=== PATIENT | female | born 1985 | race Caucasian/White ===

== ENCOUNTER 2016-07-16 07:46 | Inpatient (IN) | payer OTHER ==
[2016-07-16] VITALS (18 sets, daily range): BP systolic 98–129; BP diastolic 51–70
[~2016-07-16] VITALS: Ht 160 cm; Wt 88.0 kg
[~2016-07-16 07:46] MED LIST: PRENATAL TABLE1 EAC3 PO; ZANTAC150 MG PO
[2016-07-16] MEDS ORDERED: ZANTAC150 MG PO (08:15)
[2016-07-16 09:35] LABS: EOSINOPHIL (%) 1.3 % (0-5); EOSINOPHIL COUNT 0.2 K/uL (0-0.3); HEMATOCRIT 30.1 % (36.0-46.0); IMMATURE GRANULOCYTE (%) 0.6 % (0.0-0.7); IMMATURE GRANULOCYTE COUNT 0.1 K/uL; LYMPHOCYTE COUNT 1.7 K/uL (1.0-2.8); MCH 25.3 PG (29.0-34.0); MCHC 32.6 G/DL (30.0-36.0); MCV 77.6 FL (83-99); MONOCYTE (%) 7.9 % (3-12); MONOCYTE COUNT 1.1 K/uL (0-0.8); NEUTROPHIL (%) 77.7 % (45-76); NEUTROPHIL COUNT 10.6 K/uL (1.8-6.4); PLATELET COUNT 166 K/uL (156-360); RBC DIS.WIDTH-CV 15.7 % (11.8-14.6); RBC DIS.WIDTH-SD 44.2 % (39-53); RED BLOOD COUNT 3.88 M/uL (3.80-5.20); WHITE BLOOD COUNT 13.7 K/uL (4.1-10.2)
[2016-07-16] MEDS ORDERED: ENDOCET 5-3251 EACH PO (17:16)
[2016-07-16] MEDS ORDERED: IBUPROFEN800 MG PO (17:16)
[2016-07-17 08:00] VITALS: BP 98/58
[2016-07-17 15:33] VITALS: BP 134/64
[2016-07-17 23:10] VITALS: BP 122/67
[2016-07-18 07:30] VITALS: BP 102/52
[2016-07-18] MEDS ORDERED: SLOW RELEASE I160 MG PO (08:36)
== END 2016-07-18 13:41 | disposition home or self-care (01) | DRG 775 ==
LOC: LDRP-OP → 2WEST 07:47 → LDRP-OP 16:58 → 2WEST 07-18 13:41
PROVIDERS: Nurse Practitioner
PROC: 3E033VJ Introduction of Other Hormone into Peripheral Vein, Percutaneous Approach (ICD-10-PCS; principal; 2016-07-16)
PROC: 3E0R3CZ (ICD-10-PCS; principal; 2016-07-16)
PROC: 0HQ9XZZ Repair Perineum Skin, External Approach (ICD-10-PCS; principal; 2016-07-16)
PROC: 10907ZC Drainage of Amniotic Fluid, Therapeutic from Products of Conception, Via Natural or Artificial Opening (ICD-10-PCS; principal; 2016-07-16)
PROC: 00HU33Z Insertion of Infusion Device into Spinal Canal, Percutaneous Approach (ICD-10-PCS; principal; 2016-07-16)
PROC: 10E0XZZ Delivery of Products of Conception, External Approach (ICD-10-PCS; principal; 2016-07-16)
DX: O70.0 First degree perineal laceration during delivery (principal); O99.340 Other mental disorders complicating pregnancy, unspecified trimester; F32.9 Major depressive disorder, single episode, unspecified; O99.03 Anemia complicating the puerperium; D50.9 Iron deficiency anemia, unspecified; O99.214 Obesity complicating childbirth; E66.9 Obesity, unspecified; Z3A.39 39 weeks gestation of pregnancy; Z37.0 Single live birth
CPT/HCPCS: 83030; 85025; 86850; 86870; 86900; 86901; 86905; C1755; J2790; J3010; J7120